=== PATIENT | male | born 1945 | race Caucasian/White ===

== ENCOUNTER 2017-05-25 06:23 | Inpatient (IN) ==
[~2017-05-25 06:23] MED LIST: ACETAMINOPHEN 500 MG TABLET PO ONE; CEFAZOLIN 1 G INJECTION IVP ONE; DEXAMETHASONE 4 MG/ML INJECTION IVP ONE; FAMOTIDINE PB 20 MG/50 ML BAG IV ONE; LIDOCAINE 1% (10mg/ml) 10mL MDV SQ ONE; METOCLOPRAMIDE 10mg/2ml INJECTION IVP ONE; NOZIN NASAL SWAB NAS ONE; ONDANSETRON 4 MG/2 ML INJECTION IVP ONE; TRANEXAMIC ACID 1,000 MG in NS 100 ML IV ONE
[2017-05-25] MEDS ORDERED: SALINE FLUSH 10ml SYRINGE IVF PRN (06:39)
[2017-05-25 06:54] VITALS: BMI 29.7
--- NOTE | 2017-05-25 07:01 | History & Physical Update ---
- History and Physical Update Date: 05/25/17 Update: I evaluated this patient and found no changes in the history and clinical exam findings. The treatment plan and recommendations are also unchanged from the previous documentation.
[2017-05-25] MEDS ORDERED: VANCOMYCIN 1,000 MG INJECTION ONE (07:04)
[2017-05-25] MEDS: LR 1,000 ML IV SCH ×2 (07:30→10:10)
[2017-05-25] MEDS ORDERED: PROPOFOL 500 MG/50 ML VIAL IV ONE ×2 (07:44→10:16)
--- NOTE | 2017-05-25 07:58 | Anesthesia Preoperative Report ---
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 Proposed Procedure: left TKA NPO Since Date: 05/25/17 NPO Since Time: 05:00 Allergies/Adverse Reactions: Allergies Allergy/AdvReac Type Severity Reaction Status Date / Time lisinopril Allergy Unknown LIP AND Verified 05/15/17 13:09 SOFT TISSUE SWELLING - Vital Signs Vital Signs: Temperature 98.5 F 05/25/17 06:52 Pulse Rate 51 L 05/25/17 07:13 Respiratory Rate 15 05/25/17 06:52 Blood Pressure 148/67 H 05/25/17 06:52 Pulse Oximetry 92 05/25/17 06:52 Oxygen Delivery Method Room Air Height and Weight: Height 1.78 m Weight 93.8 kg Body Mass Index 29.7 - Medications Inpatient Medications: Current Medications Epinephrine HCl 0.25 mg/Bupivacaine HCl 30 ml/Morphine Sulfate 15 mg/Ketorolac Tromethamine 60 mg/Sodium Chloride 65.25 mls @ 200 mls/hr OPSITE INTRAOP ONE PRN Reason: Protocol Stop: 05/25/17 08:19 Lactated Ringer's (Lactated Ringers) 1,000 mls @ 50 mls/hr IV .Q20H DAVID Last Admin: 05/25/17 07:30 Dose: 50 mls/hr Sodium Chloride (Iv Flush) 10 - 80 ml IVF PRN PRN PRN Reason: Flushing Home Medications: Home Medications Medication Instructions Recorded Confirmed Type hydroCHLOROthiazide 1 tab PO WB #0 tab 08/11/14 05/25/17 History [Hydrochlorothiazide] amlodipine 10 mg tablet 10 mg PO HS tab 05/15/17 05/25/17 History tramadol 50 mg tablet 50 mg PO Q6H PRN 7 Days 05/15/17 05/25/17 History Acetaminophen [Acetaminophen Extra 1 - 2 tab PO Q6HPRN PRN 05/16/17 05/25/17 History Strength] Naproxen [Aleve] 1 tab PO BID PRN 05/16/17 05/25/17 History Aspirin 325 mg PO DAILY 05/25/17 05/25/17 History Is Patient on Beta Carmela?: No - Medical History Respiratory: Reports: Sleep Apnea Cardiovascular: Reports: Hypertension, High Cholesterol - Surgical History HEENT Surgeries: Reports: Tonsillectomy Cardiac Surgeries/Treatments: Reports: Cardiac Catheterization Respiratory Surgery/Treatments: Reports: CPAP Use GI Surgery/Treatments: Reports: Appendectomy, Colonoscopy (diverticulosis) Surgery/Treatment: REPORT: Other (OAB) Musculoskeletal Surgery/Tx: Reports: Knee Arthroscopy, Total Hip Replacement () Reproductive Surgery/Treatment: Reports: Vasectomy Hx Family Anesthesia Reaction: No History of Motion Sickness: No - Social History Smoking Status: Never smoker Hx Chewing Tobacco Use: No Second Hand Exposure: No Substance Use Type: does not use Alcohol Intake Frequency: does not drink - Pertinent Findings Laboratory: CBC and BMP 05/25/17 06:54 BMP 05/25/17 06:54 Sodium 141 Potassium 4.1 Chloride 103 Carbon Dioxide 29 BUN 23.0 H Creatinine 0.9 Glucose 94 Calcium 9.2 EKG Rhythm: Sinus Bradycardia - Physical Exam Respiratory Exam: Present: lungs clear Cardiovascular Exam: Present: irregularly irregular, systolic murmur - Airway Assessment Mallampati Score: I TMD: 3 Fingerbreadths Neck Extension: good Teeth: chipped teeth/crowns Overall Assessment: no airway concerns - ASA ASA Score: 3 - Plan Regional/Trunk Block: Spinal Peripheral Nerve Block: Saphenous-Left - Discussion Discussion: Discussed risks/options/alternatives of anesthesia and questions answered. Patient consents. Nursing pain assessment noted. Present for Discussion: spouse Attestation Statement: Prior to the delivery of any anesthetic medication, I examined the patient, developed the plan, obtained the patient's consent and discussed the risk and benefits of the procedure with the patient/guardian. - Additional Information Seen by Anesthesia: Yes
[2017-05-25] MEDS ORDERED: EPINEPHrine PF 0.25 MG, BUPIVACAINE 0.25% PF 30 ML, MORPHINE SULFATE 15 MG, KETOROLAC I... OPSITE ONE (08:00)
[2017-05-25] MEDS ORDERED: MIDAZOLAM 2mg/2ml INJECTION IVP ONE (08:00)
[2017-05-25] MEDS ORDERED: GLYCOPYRROLATE 0.4 MG/2 ML INJECTION IVP ONE ×2 (08:00→08:16)
[2017-05-25] MEDS ORDERED: GLYCOPYRROLATE 0.4 MG/2 ML INJECTION ONE (08:04)
[2017-05-25] MEDS ORDERED: ROPIVACAINE 0.5% (5mg/ml) 30ml INJ ONE (08:05)
--- NOTE | 2017-05-25 08:18 | Anesthesia Procedure Note ---
Peripheral Nerve Blockade - Procedure Physician: Gen Eden MD Date: 05/25/17 Surgical Procedure: left tka Discussion: Discussed risks/options/alternatives of anesthesia and questions answered. Patient consents. Nursing pain assessment noted. Block Start: 08:11 Block Stop: 08:13 Blocked Employed: Adductor Canal Indication: Post-Operative Pain Approach: Left Side Confirmed Position: Supine Patient: Consent, Risks/Benefits Discussed, Informed, Post Block Act. Discussed IV Sedation: Yes Sedation: Sedate w/Meaningful Contact Midazolam (mg): 2 Initial Vital Signs: Temperature 98.5 F 05/25/17 06:52 Temperature Source Oral 05/25/17 06:52 Pulse Rate 57 L 05/25/17 06:52 Respiratory Rate 15 05/25/17 06:52 Blood Pressure 148/67 H 05/25/17 06:52 Blood Pressure Mean 94 05/25/17 06:52 Blood Pressure Position Sitting 05/25/17 06:52 Pulse Oximetry 92 05/25/17 06:52 Oxygen Delivery Method 05/25/17 06:52 Post Vital Signs: Temperature 98.5 F 05/25/17 06:52 Pulse Rate 51 L 05/25/17 07:13 Respiratory Rate 15 05/25/17 06:52 Blood Pressure 148/67 H 05/25/17 06:52 Pulse Oximetry 92 05/25/17 06:52 Oxygen Delivery Method Room Air Initial Pain Pain Score: 0 Post Block Pain Score: 0 Prep: Chlorhexadine/ETOH Ultrasound Used?: No - Injectate Ropivacaine (%): 0.5 Ropivacaine (mL): 20 Was Epi 1:200,000 Used?: No Injection: Injection made incrementally with constant monitoring and aspiration every ml
[2017-05-25] MEDS ORDERED: ATROPINE 0.4 MG/ML INJECTION ONE (09:21)
[2017-05-25] MEDS ORDERED: VANCOMYCIN 1,000 MG INJECTION IAR ONE (09:55)
[2017-05-25] MEDS ORDERED: PHENYLEPHRINE INJ 10 MG/ML VIAL IV ONE (10:21)
[2017-05-25] MEDS ORDERED: SALINE FLUSH 10ml SYRINGE ONE ×2 (10:21→10:50)
[2017-05-25] MEDS ORDERED: EPHEDRINE 50mg/ml INJECTION ONE (10:50)
[2017-05-25] MEDS ORDERED: PROPOFOL 20 ML ONE ×2 (11:01→11:22)
[2017-05-25] MEDS ORDERED: NOZIN NASAL SWAB NAS ONE (12:22)
[2017-05-25] MEDS ORDERED: DiphenhydrAMINE 50 MG/ML INJECTION IVP PRN (12:22)
[2017-05-25] MEDS ORDERED: NAPROXEN 220 MG TABLET PO PRN (12:22)
[2017-05-25] MEDS ORDERED: LORazepam 1 MG TABLET PO PRN (12:22)
[2017-05-25] MEDS ORDERED: DiphenhydrAMINE 25 MG CAPSULE PO PRN (12:22)
[2017-05-25] MEDS ORDERED: ONDANSETRON 4 MG/2 ML INJECTION IVP PRN (12:22)
--- NOTE | 2017-05-25 12:27 | Anesthesia Postoperative Note ---
- Date and Time Date: 05/25/17 Time: 12:03 - Status Patient Participated in Evaluation: Patient Participated in Person Vital Signs: Temperature 97 F 05/25/17 11:46 Pulse Rate 42 L 05/25/17 12:15 Respiratory Rate 17 05/25/17 12:15 Blood Pressure 130/64 05/25/17 12:15 Pulse Oximetry 97 05/25/17 12:15 Oxygen Delivery Method Nasal Cannula Oxygen Flow Rate 2 Respiratory Function: Airway Patent, Regular Respirations Cardiovascular Function: Regular Pulse Mental Status: Alert and Oriented Pain Intensity: 0 Hydration: IV Infusing Complications During Recover: None Apparent Post Anesthesia Care Notes: moves feet bilat - Follow-Up Instructions Instructions: Per Surgeon
--- NOTE | 2017-05-25 12:35 | Operative Note ---
- Procedure Date of Admission: 05/25/17 Side: left Preoperative Diagnosis: knee primary DJD Postoperative Diagnosis: Same as preoperative diagnosis. Operation: Procedures Replacement of Right Hip Joint with Ceramic on Polyethylene Synthetic Substitute , Uncemented, Open Approach (01/03/17) Operation: total knee arthroplasty Surgeon: Shreya Eden MD Project Engineering Manager: SERGE Pendleton Complications: None. Regional/Trunk Block: Spinal Peripheral Nerve Block: Saphenous-Left Estimated Blood Loss: See Anesthesia Record. Fluids: Please see Anesthesia Record. Description of Procedure: Mr. Denise and the left knee were identified and marked in the preoperative holding area. He was brought back to the operating suite and placed supine on the operating table. Spinal anesthetic was administered. The operative lower extremity was prepped and draped in a sterile fashion. Timeout was performed. Mr. del real and had a fixed varus deformity. An anterior midline incision followed by medial parapatellar arthrotomy was performed. A complete loss in the medial compartment most significantly on the tibia. The tourniquet was not used until cementing. Hemostasis was obtained with electrocautery. The patella was resurfaced to a size 35. A distal femoral osteotomy was then performed in 5 of valgus using intramedullary guide. The femur was sized at a 7 and rotation set using the epicondylar axis. Distal femoral cuts were performed with a 4-in-1 cutting block. A proximal tibial cut was then made perpendicular to its long axis using an extramedullary guide. At this point remaining meniscus and osteophytes were removed and joint cocktail was injected throughout soft tissue. Trial components were placed with a 9 mm spacer. He was a bit tight so a larger medial release was performed as well as another millimeter was taken off the tibial cut. This allowed for full extension and flexion and the patella tracked well. The leg was then exsanguinated and the tourniquet inflated to 250 mmHg. The tibia was then stamped at a size 6 at the proper rotation. The bone was then prepared for cementing and Taniya Triathal[employer] components were cemented into place and allowed to cure in extension. The tourniquet was then let down and hemostasis obtained with electrocautery. Betadine solution was used during the curing period for 3 minutes. 1 g of vancomycin powder was placed into the joint before the capsulotomy was repaired with #1 Vicryl. I then left my food and nutrition services assistant close the subcutaneous tissue and skin with 2-0 Vicryl and Monocryl. Dermabond was used on the skin. The drapes were then removed and he was taken to recovery room under the care of anesthesia.
[2017-05-25] MEDS: NS 1,000 ML IV SCH (12:38)
[2017-05-25] MEDS: ACETAMINOPHEN 325 MG TABLET PO SCH ×3 (12:38→21:33)
[2017-05-25 13:00] VITALS: RESP 16
[2017-05-25] MEDS: NOZIN NASAL SWAB NAS SCH ×2 (13:51→21:33)
[2017-05-25] MEDS: TRAMADOL 50 MG TABLET PO PRN ×2 (13:52→21:38)
--- NOTE | 2017-05-25 14:23 | XRay Report ---
Indication: postoperative image left knee replacement PROCEDURE: XR knee LT 2V: Encounter: Initial Comparison: May 15, 2017 Findings: Postoperative changes of left total knee replacement are seen. There is expected postoperative subcutaneous gas. No evidence of hardware failure or acute fracture. No retained radiopaque surgical instruments or sponges. Overlying material causing artifact. Impression: New left total knee prosthesis without evidence of immediate complication. .
[2017-05-25] MEDS: CEFAZOLIN 2 G in NS 100 ML IV SCH (17:20)
[2017-05-25] MEDS: ASPIRIN *EC* 325 MG TABLET PO SCH (21:34)
[2017-05-25] MEDS: DOCUSATE SODIUM 100 MG CAPSULE PO SCH (21:34)
[2017-05-25] MEDS ORDERED: SENNOSIDES 8.6 MG TABLET PO SCH (22:00)
[2017-05-25] MEDS ORDERED: AMLODIPINE 10 MG TABLET PO SCH (22:00)
[2017-05-26] MEDS: CEFAZOLIN 2 G in NS 100 ML IV SCH (01:37)
[2017-05-26] MEDS: NS 1,000 ML IV SCH (03:30)
[2017-05-26] MEDS: NOZIN NASAL SWAB NAS SCH ×2 (06:11→14:04)
[2017-05-26 07:10] VITALS: TEMP 97.1
--- NOTE | 2017-05-26 07:57 | Orthopedic Progress Note ---
Date: Subjective/Severity of Illness: Pt is doing great. Pain is controlled very well. No CP, cough or SOA. He was up with PT / OT with no complaints. Orthopedic Objective PO Vital signs: Temperature 97.1 F 05/26/17 07:09 Pulse Rate 52 L 05/26/17 07:09 Respiratory Rate 16 05/26/17 07:09 Blood Pressure 141/67 H 05/26/17 07:09 Pulse Oximetry 91 05/26/17 07:09 Oxygen Delivery Method Room Air Oxygen Flow Rate 1 Height and Weight: Height 5 ft 10 in Weight 206 lb 12.697 oz Body Mass Index 29.7 - Constitutional General Appearance: Present: alert, no acute distress - Respiratory Exam Present: non-labored - Extremities Exam Extremities: Present: pulses intact, normal capillary refill. Absent: calf tenderness - Surgical Site Incision: Mepilex dressing intact, no drainage - Neurological Exam Present: no deficits - Psychiatric Exam Present: alert, normal affect - Labs Result Diagrams: 05/26/17 04:19 05/26/17 04:19 Abnormal lab results 05/26/17 05/26/17 Range/Units 04:19 04:19 WBC 13.7 H (4.5-11.0) T/MM3 RBC 4.23 L (4.50-5.90) M/MM3 Hgb 11.4 L (13.5-17.5) GM/DL Hct 35.4 L (41-53) % Anion Gap 4 L (5-15) MEQ/L BUN 27.0 H (9-20) MG/DL BUN/Creatinine Ratio 30 H (6-26) RATIO Glucose 124 H (75-110) MG/DL H & H 05/26/17 Range/Units 04:19 Hgb 11.4 L (13.5-17.5) GM/DL Hct 35.4 L (41-53) % Orthopedic Assessment and Plan (1) Arthritis of knee, left Status: Acute Assessment and Plan: ASA x 6 weeks for DVT coverage. SCD in place. Mobilize. PT / OT to work on independent activity prior to discharge. CM to assist with discharge needs. Pt has ZAK, will monitor and encourage I.S. after discharge. WBC mildly elevated likely due to IV steroids and surgical stress. Afeb and surgical site is clean. (2) Obstructive sleep apnea Status: Acute Hospital Course Summary Disclaimer: The visit summary below is not to be considered part of the above Progress Note.
[2017-05-26] MEDS: DOCUSATE SODIUM 100 MG CAPSULE PO SCH (08:27)
[2017-05-26] MEDS: ASPIRIN *EC* 325 MG TABLET PO SCH (08:27)
[2017-05-26] MEDS: ACETAMINOPHEN 325 MG TABLET PO SCH ×2 (08:27→14:03)
[2017-05-26] MEDS ORDERED: POLYETHYL GLYCOL 3350 17gm PACKET PO SCH (09:00)
[2017-05-26] MEDS: TRAMADOL 50 MG TABLET PO PRN (09:25)
[2017-05-26] MEDS ORDERED: SENNOSIDES 8.6 MG TABLET PO PRN (11:36)
[2017-05-26 12:12] VITALS: BP 149/64; PULSE 67; O2SAT 95
--- NOTE | 2017-05-26 14:04 | Discharge Summary ---
Orthopedic Discharge Info Date of admission: 05/25/17 06:23 Primary care physician: Alfredo Samson MD Attending Physician: Gen Eden MD Consults: 05/25/17 06:39 Consult to Anesthesiology [CONS] Routine Consulting Provider: SERGE Saini Reason For Exam: Preoperative Assessment 05/25/17 12:22 Case Management Consult [CONS] Routine Reason For Exam: Discharge Planning DME-Walker [CONS] Routine Height: 5 ft 10 in Weight: 206 lb 12.697 oz Comment: change dressing in 2 weeks Total Joint Outpatient Therapy [CONS] Routine Comment: change dressing in 2 weeks - Discharge Diagnosis (1) Arthritis of knee, left Status: Acute (2) Obstructive sleep apnea Status: Acute - Procedures Procedures: Procedures Lt TKA 05/24/17 - Laboratory Result Diagrams: 05/26/17 04:19 05/26/17 04:19 Laboratory: Abnormal lab results 05/26/17 05/26/17 Range/Units 04:19 04:19 WBC 13.7 H (4.5-11.0) T/MM3 RBC 4.23 L (4.50-5.90) M/MM3 Hgb 11.4 L (13.5-17.5) GM/DL Hct 35.4 L (41-53) % Anion Gap 4 L (5-15) MEQ/L BUN 27.0 H (9-20) MG/DL BUN/Creatinine Ratio 30 H (6-26) RATIO Glucose 124 H (75-110) MG/DL H & H 05/26/17 Range/Units 04:19 Hgb 11.4 L (13.5-17.5) GM/DL Hct 35.4 L (41-53) % Orthopedic Discharge HPI - HPI Comments This patient was admitted for elective surgical tx of end stage degenerative joint disease that failed to respond to conservative treatment. Further details of this is found in the admission H&P. Orthopedic Hospital Course Hospital course: 05/26/17 14:00 After appropriate preoperative clearance and signing of operative consent, the patient was given IV antibiotics, according to orthopedic protocol. The patient was taken to the operating room and underwent elective left total knee arthroplasty. Following surgery, antibiotics were discontinued less than 24 hours according to joint protocol. Aspirin was initiated and SCDs added for DVT prevention. The dressing was clean, dry, and intact. Pain control was obtained via multimodal approach. Bowel motivation addressed with scheduled and PRN medications. Early mobilization was initiated through PT services. Discharge arrangements made by a collaborative effort between the patient and Case Management. Follow-up is scheduled in 2-3 weeks. Discharge instructions given by orthopedic providers and nursing staff at discharge. Discharge condition was good. Ongoing care required?: No Discharge Plan - Med Rec/Dispo Referrals/Follow Up: Gen Eden MD [Physician] - 06/14/17 9:00 am [email or web address] Instructions: [facility] Postop Instructions Additional Instructions: [facility] ON 05/29/2017 AT 12:45PM FOR PHYSICAL THERAPY EVAL. PHONE Prescriptions: New Acetaminophen [Tylenol] 650 mg PO QID tablet Aspirin *EC* [Ecotrin] 325 mg PO BID #84 tablet Docusate Sodium [Colace] 100 mg PO BID capsule Milk of Magnesia [Mom] 30 ml PO DAILY udc Naproxen [Aleve] 440 mg PO BID PRN tablet PRN Reason: Pain Tramadol [Ultram] 50 - 100 mg PO Q6H PRN #60 tablet PRN Reason: Pain PEG 3350 17gm PACKET [Miralax] 17 gm PO DAILY packet Continue hydroCHLOROthiazide [Hydrochlorothiazide] 1 tab PO WB #0 tab amlodipine 10 mg tablet 10 mg PO HS tab tramadol 50 mg tablet 50 mg PO Q6H PRN 7 Days PRN Reason: Pain Discontinued Acetaminophen [Acetaminophen Extra Strength] 1 - 2 tab PO Q6HPRN PRN PRN Reason: Pain Naproxen [Aleve] 1 tab PO BID PRN PRN Reason: Pain Aspirin 325 mg PO DAILY - Disposition 01 Discharged Home, Self-Care
[2017-05-27] MEDS ORDERED: BISACODYL 10 MG SUPPOSITORY RECTALLY SCH (20:00)
== END 2017-05-26 15:40 | disposition home or self-care (01) | DRG 470 ==
LOC: SRG 06:23
PROVIDERS: ADMIT Orthopaedic Surgery; ATTEND Orthopaedic Surgery